=== PATIENT | female | born 1980 | race Caucasian/White ===

== ENCOUNTER 2025-01-06 07:42 | Day surgery (SDC) | payer OTHER ==
[2025-01-06] MEDS ORDERED: Lactated Ringers 1,000 ML IV ONE (08:39)
[2025-01-06] MEDS: Lactated Ringers 1,000 ML IV SCH (08:40)
[2025-01-06 08:54] VITALS: RESP 18
--- NOTE | 2025-01-06 10:10 | HP ---
HISTORY OF PRESENT ILLNESS: A 44-year-old had some bright red blood per rectum, clots. Recently treated for UTI, no improvement. CT at [facility], had some diverticular disease. Has had some pain mid upper abdomen. Prior colonoscopy 3 years ago, had some polyps. Family history negative for colon cancer or IBD. Her sister sounds like had ischemic bowel when she was young, unclear etiology. HOME MEDICATIONS: Ezetimibe, metronidazole, Cipro, atorvastatin, Repatha, and Synthroid. ALLERGIES: Imitrex caused her jaw to freeze up; penicillin, had a rash. SOCIAL HISTORY: Former smoker. No alcohol abuse. REVIEW OF SYSTEMS: Twelve systems reviewed. No chest pain or palpitations. All other systems negative or noncontributory as above and per preadmission questionnaire. PHYSICAL EXAMINATION: VITAL SIGNS: Height 5 feet 2 inches. BMI 24.69. GENERAL: No acute distress. HEENT: Sclerae nonicteric. NECK: No JVD. CARDIOVASCULAR: Regular rate and rhythm. RESPIRATORY: Clear. ABDOMEN: Soft. SKIN: Dry. EXTREMITIES: No cyanosis or edema. NEUROLOGIC: Alert and oriented, moving all extremities symmetrically PSYCHIATRIC: Appropriate mood and affect. RECTAL: Deferred until time of endoscopy exam. IMPRESSION: Upper abdominal pain, question whether gastritis, peptic ulcer disease, or colitis of the possible transverse colon. Recommend EGD and colonoscopy for evaluation. The patient reported she had a negative right upper quadrant ultrasound recently. She was shown endoscopy risk sheet including but not limited to risk of bleeding, infection; risk of bowel injury or perforation possibly requiring open procedure; risk of missed or nondiagnosis or incomplete exam possibly requiring barium enema; risk of missed or nondiagnosis possibly requiring need for other procedures or referrals; risk of anesthesia, sedation; risk of bowel prep, but not limited to. Will proceed with EGD and colonoscopy under MAC anesthesia. Otherwise, continue medications for thyroid disease, headaches, and lipids.
[2025-01-06] MEDS ORDERED: Xylocaine-Mpf 2% 5 Ml Vial ONE (11:35)
[2025-01-06] MEDS ORDERED: Versed 2 MG/2 ML Injection ONE (11:35)
[2025-01-06] MEDS ORDERED: propofoL IV ONE ×2 (11:35→12:01)
[2025-01-06 12:30] VITALS: O2SAT 99
[2025-01-06 12:42] VITALS: BP 115/80; PULSE 64; TEMP 97.2
--- NOTE | 2025-01-07 09:49 | OP ---
SURGERY DATE/TIME: 01/06/2025 [id number] PREOPERATIVE DIAGNOSIS: History of some upper abdominal pain with some rectal bleeding. POSTOPERATIVE DIAGNOSES: 1) Some mild gastric erythema, biopsy pending to evaluate for early gastritis and for H pylori. 2) Fairly normal colon mucosa and distal ileum mucosal, biopsy pending to evaluate for microscopic inflammation. 3) Small early polyp versus hyperplastic lesion, sigmoid colon. 4) Grade 2 internal and external hemorrhoids. PROCEDURE: 1) Esophagogastroduodenoscopy, cold biopsy small bowel to evaluate for celiac disease, cold biopsy antrum to evaluate for H pylori, cold biopsy distal esophagus. 2) Colonoscopy to terminal ileum with retrograde ileoscopy. 3) Random cold biopsies of ileum to evaluate for microscopic inflammation 4) Random cold biopsies of colon to evaluated for microscopic colitis. 5) Hot biopsy removal of small early polyp versus hyperplastic lesion, sigmoid colon. SURGEON: Ciro Henao MD ANESTHESIA: MAC. ESTIMATED BLOOD LOSS: Minimal. INDICATIONS: Consent obtained. DESCRIPTION OF PROCEDURE AND FINDINGS: The patient was taken to the endoscopy room. MAC anesthesia induced. After official time-out and no disagreement in planned procedure, bite block positioned. Videogastroscope passed down the esophagus through the pylorus to the junction of third and fourth portions of duodenum. Duodenum fairly unremarkable. Given her symptom complaint of upper abdominal pain, cold biopsy taken to evaluate for celiac disease. Good hemostasis noted. Scope pulled back in the stomach. There was some gastric erythema. Cold biopsies taken to evaluate for any early inflammation and there were no erosions nor signs of any large segments of [place]'s. No signs of any masses. Good hemostasis noted. Remainder of esophagus grossly unremarkable. Scope withdrawn. Digital rectal exam did not reveal any masses. She did have some internal and external hemorrhoids. Videocolonoscope was inserted and passed up through the tortuous sigmoid, descending, transverse, and ascending colon around to the cecum. Appendiceal orifice and valve well visualized. Scope was passed up the terminal ileum. Retrograde ileoscopy was performed which was grossly unremarkable. Given her symptom complaints, random cold biopsies taken to evaluate for microscopic ileitis in the ileum. Random cold biopsies were taken the colon to evaluate for microscopic ileitis. Prep overall was fair. Withdrawal time on the colonoscopy was 10 minutes. Mucosa was fairly unremarkable. There was some liquidy stool coating the bowel wall limiting exam for small lesions. There were no signs of any large polyps, masses, or obstructing lesions. No signs of any rosendo microscopic colitis. Random cold biopsies were taken in particularly the right and transverse colon to evaluate for microscopic colitis. Good hemostasis noted. Scope pulled back in down the left colon. There was no evidence of any large diverticula. There was a small early polyp versus hyperplastic lesion in sigmoid colon removed with hot biopsy forceps. Good hemostasis noted. Otherwise, in the rectum on retroflexion there were some grade 2 internal and external hemorrhoids, mostly had been irritated and created rectal bleeding, did not feel to be large enough to warrant any intervention at time. The scope was straightened and withdrawn with no signs of any large polyps, masses, or obstructing lesions. Findings discussed with family in the waiting area. Will see her back in the office next week.
== END 2025-01-06 12:45 | disposition home or self-care (01) ==
LOC: SDC 07:42
PROVIDERS: ATTEND Surgery
DX: K63.5 Polyp of colon (principal); K62.5 Hemorrhage of anus and rectum; R10.10 Upper abdominal pain, unspecified; K29.00 Acute gastritis without bleeding; K64.4 Residual hemorrhoidal skin tags; K64.8 Other hemorrhoids